=== PATIENT | female | born 1965 | race African-American/Black ===

== ENCOUNTER → 2017-06-23 | Outpatient (CLI) | payer OTHER ==
[~2017-06-23] MED LIST: NOHOMEMEDICATIONS; NORCO 5-325 TA1 EACH PO
== END ==
LOC: ULTRA 08:56
DX: K76.0 Fatty (change of) liver, not elsewhere classified (principal)

== ENCOUNTER → 2017-10-02 | Outpatient (CLI) | payer OTHER | LOC: NUC 08:31 | DX: R10.11 Right upper quadrant pain (principal); M54.9 Dorsalgia, unspecified ==